=== PATIENT | female | born 1985 | race Caucasian/White ===

== ENCOUNTER 2017-09-18 08:11 | Observation (INO) | payer BC, OTHER ==
[~2017-09-18] VITALS: Ht 157.5 cm; Wt 76.0 kg
[~2017-09-18 08:11] MED LIST: ALBU0.63; ALBUTE
[2017-09-18] MEDS ORDERED: LEXA10TA PO (08:19)
[2017-09-18] MEDS ORDERED: ADVA500A INH (08:19)
[2017-09-18 08:25] VITALS: BP 120/80; PULSE 92; RESP 16; TEMP 98; O2SAT 98
--- NOTE | 2017-09-18 08:29 | PD ---
HPI Chief Complaint: Cardiac Complaint Time Seen by Provider: 08:17 Travel History International Travel<30 days: No Contact w/Intl Traveler<30days: No Traveled to known affect area: No History of Present Illness HPI 32yo F with PMH of asthma and anxiety here with c/o chest pain since 6am this morning. It is midsternal, sharp and radiates to left chest. Chest pain is intermittent. [place] palpitations as well. Associated with sob, and nausea. + Cough. Denies any fever, vomiting, abdominal pain, focal weakness or numbness. Said mother had triple bypass at age 38. Pt is a cig smoker. Said had similar pain before but never evaluated by chuck tender. PFSH Past Medical History Asthma: Yes Reproductive: Yes (PRESENTLY ) : 2 Para: 1 Social History Alcohol Use: No Tobacco Use: No Allergies-Medications (Allergen,Severity, Reaction): Coded Allergies: penicillin G (Unverified Allergy, Mild, Anaphylaxis, 09/18/17) Reported Meds & Prescriptions Reported Meds & Active Scripts Active Reported Advair Diskus Inh (Fluticasone-Salmeterol Inh) 500-50 Mcg/Blist Aer 1 Puff INH HS Rinse mouth after use. Lexapro (Escitalopram Oxalate) 10 Mg Tab 10 Mg PO DAILY Review of Systems Except as stated in HPI: all other systems reviewed are Neg Physical Exam Narrative GENERAL: 32yo F not in distress. SKIN: Focused skin assessment warm/dry. HEAD: Atraumatic. Normocephalic. EYES: Pupils equal and round. No scleral icterus. No injection or drainage. ENT: No nasal bleeding or discharge. Mucous membranes pink and moist. NECK: Trachea midline. No JVD. CARDIOVASCULAR: Regular rate and rhythm. No murmur appreciated. RESPIRATORY: No accessory muscle use. Clear to auscultation. Breath sounds equal bilaterally. GASTROINTESTINAL: Abdomen soft, non-tender, nondistended. MUSCULOSKELETAL: No obvious deformities. No clubbing. No cyanosis. No edema. NEUROLOGICAL: Awake and alert. No obvious cranial nerve deficits. Motor grossly within normal limits. Normal speech. PSYCHIATRIC: Appropriate mood and affect; insight and judgment normal. Data Data Last Documented VS Vital Signs Date Time Temp Pulse Resp B/P (MAP) Pulse Ox O2 Delivery O2 Flow Rate FiO2 09/18/17 09:41 79 16 133/81 (98) 99 Nasal Cannula 2.00 11/16/17 08:25 98.0 Orders Orders Electrocardiogram (09/18/17 08:15) Basic Metabolic Panel (Bmp) (09/18/17 08:25) Complete Blood Count With Diff (09/18/17 08:25) Magnesium (Mg) (09/18/17 08:25) Prothrombin Time / Inr (Pt) (09/18/17 08:25) Act Partial Throm Time (Ptt) (09/18/17 08:25) Troponin I (09/18/17 08:25) Chest, Single Ap (09/18/17 08:25) Aspirin (Aspirin) (09/18/17 08:30) Lorazepam (Ativan) (09/18/17 10:00) Admit Order (Ed Use Only) (09/18/17 10:31) Labs Laboratory Tests Test 09/18/17 08:30 White Blood Count 11.0 TH/MM3 Red Blood Count 4.89 MIL/MM3 Hemoglobin 14.9 GM/DL Hematocrit 44.5 % Mean Corpuscular Volume 90.9 FL Mean Corpuscular Hemoglobin 30.5 PG Mean Corpuscular Hemoglobin Concent 33.5 % Red Cell Distribution Width 12.0 % Platelet Count 275 TH/MM3 Mean Platelet Volume 9.2 FL Neutrophils (%) (Auto) 64.2 % Lymphocytes (%) (Auto) 23.4 % Monocytes (%) (Auto) 6.5 % Eosinophils (%) (Auto) 5.2 % Basophils (%) (Auto) 0.7 % Neutrophils # (Auto) 7.0 TH/MM3 Lymphocytes # (Auto) 2.6 TH/MM3 Monocytes # (Auto) 0.7 TH/MM3 Eosinophils # (Auto) 0.6 TH/MM3 Basophils # (Auto) 0.1 TH/MM3 CBC Comment DIFF FINAL Differential Comment Prothrombin Time 10.6 SEC Prothromb Time International Ratio 1.0 RATIO Activated Partial Thromboplast Time 29.9 SEC Blood Urea Nitrogen 13 MG/DL Creatinine 0.80 MG/DL Random Glucose 91 MG/DL Calcium Level 8.7 MG/DL Magnesium Level 2.0 MG/DL Sodium Level 136 MEQ/L Potassium Level 4.0 MEQ/L Chloride Level 105 MEQ/L Carbon Dioxide Level 20.8 MEQ/L Anion Gap 10 MEQ/L Estimat Glomerular Filtration Rate 83 ML/MIN Troponin I LESS THAN 0.02 NG/ML MDM Medical Decision Making Medical Screen Exam Complete: Yes Emergency Medical Condition: Yes Interpretation(s) EKG: NSR 90bpm. Normal axis. No ST segment elevation or depression. Differential Diagnosis ACS vs. musculoskeletal pain vs. GERD vs. pericarditis vs. anxiety Narrative Course 32yo F with anxiety and asthma here with atypical chest pain. However, pt does have a significant family history and said mother had heart attack at age 32 and had triple bypass at 38yo. Pt is a cig smoker. Labs reviewed, no leukocytosis. Troponin negative. CXR showed no acute disease. Pt given aspirin and ativan for anxiety. I do feel that this is atypical but pt has significant family history so will admit to chest pain center for serial EKG and cardiac enzymes. Diagnosis Primary Impression: Chest pain Qualified Codes: R07.9 - Chest pain, unspecified Admitting Information Admitting Physician Requests: Muriel Bahena DO Sep 18, 2017 08:29
[2017-09-18] MEDS ORDERED: ASPIRIN 325 MG TAB PO ONE (08:30)
[2017-09-18 08:57] LABS: BASOPHIL # 0.1 TH/MM3 (0-0.2); BASOPHIL % 0.7 % (0.0-2.0); EOSINOPHIL # 0.6 TH/MM3 (0-0.4); EOSINOPHIL % 5.2 % (0.0-4.0); HEMATOCRIT 44.5 % (35.0-46.0); HEMO FLAGS DIFF FINAL; LYMPH % 23.4 % (9.0-44.0); LYMPHOCYTE # 2.6 TH/MM3 (1.0-4.8); MEAN CELL VOLUME 90.9 FL (80.0-100.0); MEAN CORPUSCULAR HEMOGLOBIN 30.5 PG (27.0-34.0); MEAN CORPUSCULAR HGB CONC 33.5 % (32.0-36.0); MONO % 6.5 % (0.0-8.0); NEUT % 64.2 % (16.0-70.0); PLATELET COUNT 275 TH/MM3 (150-450); RED BLOOD COUNT 4.89 MIL/MM3 (4.00-5.30)
[2017-09-18 09:00] LABS: CHLORIDE 105 MEQ/L (98-107); SODIUM (NA) 136 MEQ/L (136-145)
[2017-09-18 09:03] LABS: ANION GAP 10 MEQ/L (5-15); BICARBONATE 20.8 MEQ/L (21.0-32.0); BLOOD UREA NITROGEN 13 MG/DL (7-18)
[2017-09-18 09:04] LABS: APTT (PATIENT) 29.9 SEC (24.3-30.1); PROTHROMBIN TIME - PATIENT 10.6 SEC (9.8-11.6)
[2017-09-18 09:07] LABS: GLOMERULAR FILTRATION RATE 83 ML/MIN (>89)
--- NOTE | 2017-09-18 09:27 | RADRPT ---
EXAM DATE/TIME: 09/18/2017 08:39 [facility] COMPARISON: No previous studies available for comparison. INDICATIONS : Chest pain, short of breath. MEDICAL HISTORY : None. SURGICAL HISTORY : None. ENCOUNTER: Initial ACUITY: 1 day PAIN SCORE: 5/10 LOCATION: Bilateral chest FINDINGS: A single view of the chest demonstrates the lungs to be symmetrically aerated without evidence of mas s, infiltrate or effusion. The cardiomediastinal contours are unremarkable. Osseous structures are intact. Old right-sided rib fractures. CONCLUSION: No acute disease. Thony Mccormick Jr., MD on September 18, 2017 at 9:25 Board Certified Radiologist. This report was verified electronically.
[2017-09-18 09:41] VITALS: BP 133/81; PULSE 79; RESP 16; O2SAT 99
[2017-09-18] MEDS ORDERED: LORazepam 1 MG TAB PO ONE (10:00)
[2017-09-18] MEDS ORDERED: SODIUM CHLOR 0.9% 1000 ML INJ 1,000 ML IV SCH (10:29)
[2017-09-18] MEDS ORDERED: NITROGLYCERIN 0.4 MG SL 25 TABS/BTL SL PRN (10:30)
[2017-09-18] MEDS ORDERED: ONDANSETRON HCL 4 MG/2 ML VIAL IV PUSH PRN (10:30)
[2017-09-18] MEDS ORDERED: SODIUM CHLORIDE 0.9% FLUSH 10 ML FLUSH IV FLUSH PRN (10:30)
[2017-09-18 11:46] LABS: CREATINE KINASE 165 U/L (26-192)
[2017-09-18 11:58] LABS: CKMB 1.4 NG/ML (0.5-3.6)
[2017-09-18 12:05] VITALS: BP 120/85; PULSE 73; RESP 15; O2SAT 98
[2017-09-18] MEDS ORDERED: HEPARIN SODIUM - SQ 10,000 UNITS/ML VIAL SQ SCH (14:00)
[2017-09-18] MEDS ORDERED: FAMOTIDINE 20 MG TAB PO SCH (14:00)
[2017-09-18 14:11] LABS: CREATINE KINASE 153 U/L (26-192)
[2017-09-18 14:24] LABS: CKMB 1.4 NG/ML (0.5-3.6)
--- NOTE | 2017-09-18 14:53 | HHI.HP ---
[facility] Uday Villafana MD Admission Diagnosis Chest pain Diagnoses: (1) Chest pain (2) Back pain Chief Complaint: Chest and back pain Travel History International Travel<30 Days: No Contact w/Intl Traveler <30 Da: No Traveled to Known Affected Are: No History of Present Illness Written by Sandie Razo, acting as scribe for Dr. Morrison on 09/18/17 at 14: 48. Ms. Cyr is a 32-year-old female patient with a known medical history of asthma and anxiety who presented to the ED with complaints of chest pain. Patient states she had episodes of shooting back pain that has been intermittent for the past several months. She states that the pain occurs at random times with no identifiable reason or cause. Patient states she usually takes "heartburn" medications and it will eventually go away. She also states that along with the back pain she has episodes of palpitations where her heart "feels like its racing". She says her heart will feel like it "skips a beat" and she cant "catch her breath". This morning she said she had an episode of left-sided chest pain with associated shortness of breath, sharp in nature. Denies any nausea, vomiting or diaphoresis. 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 Patient's mother did have an DC at the age of 32 and a CABG at 38 years old. At the time of assessment patient denies any chest pain, does still complain of back pain. Denies any recent illness including fever, chills, cough, shortness of breath, ab pain, n/v/d or dysuria. Review of Systems Constitutional: DENIES: Fever, Chills Respiratory: COMPLAINS OF: Shortness of breath, DENIES: Cough Cardiovascular: COMPLAINS OF: Chest pain, Palpitations Gastrointestinal: COMPLAINS OF: Bloody stools, Nausea, DENIES: Abdominal pain, Constipation, Diarrhea, Vomiting Musculoskeletal: COMPLAINS OF: Back pain, DENIES: Neck pain Psychiatric: COMPLAINS OF: Anxiety Except as stated in HPI: all other systems reviewed are Neg Past Family Social History Past Medical History Asthma Depression Past Surgical History Tubal ligation Reported Medications Active Reported Advair Diskus Inh (Fluticasone-Salmeterol Inh) 500-50 Mcg/Blist Aer 1 Puff INH HS Rinse mouth after use. Lexapro (Escitalopram Oxalate) 10 Mg Tab 10 Mg PO DAILY Allergies: Coded Allergies: penicillin G (Unverified Allergy, Mild, Anaphylaxis, 09/18/17) Active Ordered Medications Current Medications Medications (Trade) Dose Ordered Sig/Priscila Route Start Time Stop Time Status Last Admin Sodium Chloride 1,000 ml @ 100 mls/hr Q10H IV 09/18/17 10:29 09/18/17 10:53 (NS Flush) 2 ml UNSCH PRN IV FLUSH 09/18/17 10:30 (NS Flush) 2 ml BID IV FLUSH 09/18/17 21:00 (Zofran Inj) 4 mg Q6H PRN IV PUSH 09/18/17 10:30 (Nitrostat Sl) 0.4 mg Q5M PRN SL 09/18/17 10:30 (Heparin Inj) 5,000 units Q8H SQ 09/18/17 14:00 (Pepcid) 20 mg BID PO 09/18/17 14:00 (Pneumovax-23 Inj) 25 mcg ONCE ONCE IM 09/19/17 10:00 09/19/17 10:01 Family History Maternal medical history significant for DC at the age of 3232 years old and a CABG at the age of 38. Father has a significant medical history of arrhythmias. Social History Admits to socially smoking, less than once every week. Denies any alcohol use. Denies any illicit drug use. Physical Exam Vital Signs Vital Signs Date Time Temp Pulse Resp B/P (MAP) Pulse Ox O2 Delivery O2 Flow Rate FiO2 09/18/17 12:05 73 15 120/85 (97) 98 09/18/17 11:45 09/18/17 09:41 79 16 133/81 (98) 99 Nasal Cannula 2.00 09/18/17 08:28 16 99 2.00 09/18/17 08:25 98.0 92 16 120/80 (93) 98 Physical Exam GENERAL: This is a well-nourished, well-developed female patient, lying in bed in no apparent distress. SKIN: No rashes, ecchymoses or lesions. Warm and dry. HEENT: Atraumatic. Normocephalic. Pupils equal round and reactive. Extraocular motions intact. No scleral icterus. No injection or drainage. Nose without bleeding, purulent drainage or septal hematoma. Throat without erythema, tonsillar hypertrophy or exudate. Uvula midline. Airway patent. NECK: Trachea midline. No JVD or lymphadenopathy. Supple, nontender, no meningeal signs. CARDIOVASCULAR: Regular rate and rhythm without murmurs, gallops, or rubs. RESPIRATORY: Clear to auscultation. Breath sounds equal bilaterally. No wheezes , rales, or rhonchi. GASTROINTESTINAL: Abdomen soft, non-tender, nondistended. No hepato-splenomegaly , or palpable masses. No guarding. MUSCULOSKELETAL: Extremities without clubbing, cyanosis, or edema. No joint tenderness, effusion, or edema noted. No calf tenderness. Negative Homans sign bilaterally. NEUROLOGICAL: Awake and alert. Cranial nerves II through XII intact. Motor and sensory grossly within normal limits. Five out of 5 muscle strength in all muscle groups. Normal speech. Laboratory Laboratory Tests Test 09/18/17 08:30 09/18/17 11:15 09/18/17 13:45 White Blood Count 11.0 Red Blood Count 4.89 Hemoglobin 14.9 Hematocrit 44.5 Mean Corpuscular Volume 90.9 Mean Corpuscular Hemoglobin 30.5 Mean Corpuscular Hemoglobin Concent 33.5 Red Cell Distribution Width 12.0 Platelet Count 275 Mean Platelet Volume 9.2 Neutrophils (%) (Auto) 64.2 Lymphocytes (%) (Auto) 23.4 Monocytes (%) (Auto) 6.5 Eosinophils (%) (Auto) 5.2 Basophils (%) (Auto) 0.7 Neutrophils # (Auto) 7.0 Lymphocytes # (Auto) 2.6 Monocytes # (Auto) 0.7 Eosinophils # (Auto) 0.6 Basophils # (Auto) 0.1 CBC Comment DIFF FINAL Differential Comment Prothrombin Time 10.6 Prothromb Time International Ratio 1.0 Activated Partial Thromboplast Time 29.9 Blood Urea Nitrogen 13 Creatinine 0.80 Random Glucose 91 Calcium Level 8.7 Magnesium Level 2.0 Sodium Level 136 Potassium Level 4.0 Chloride Level 105 Carbon Dioxide Level 20.8 Anion Gap 10 Estimat Glomerular Filtration Rate 83 Troponin I LESS THAN 0.02 LESS THAN 0.02 LESS THAN 0.02 Total Creatine Kinase 165 153 Creatine Kinase MB 1.4 1.4 Result Diagram: 09/18/1782909/18/17829 Imaging Last Impressions Chest X-Ray 09/18/17824 Signed Impressions: Service Date/Time: September 08:39 - CONCLUSION: No acute disease. MD Jose Bae Jr. VTE Risk Assessment Caprini VTE Risk Assessment: No/Low Risk (score <= 1) Caprini Risk Assessment Model Point Value = 1 Point Value = 2 Point Value = 3 Point Value = 5 Age 41-60 Minor surgery BMI > 25 kg/m2 Swollen legs Varicose veins or History of unexplained or recurrent spontaneous Oral contraceptives or hormone replacement Sepsis (< 1 month) Serious lung disease, including pneumonia (< 1 month) Abnormal pulmonary function Acute myocardial infarction Congestive heart failure (< 1 month) History of inflammatory bowel disease Medical patient at bed rest Age 61-74 Arthroscopic surgery Major open surgery (> 45 min) Laparoscopic surgery (> 45 min) Malignancy Confined to bed (> 72 hours) Immobilizing plaster cast Central venous access Age >= 75 History of VTE Family history of VTE Factor V Leiden Prothrombin [id number] Lupus anticoagulant Anticardiolipin antibodies Elevated serum homocysteine Heparin-induced thrombocytopenia Other congenital or acquired thrombophilia Stroke (< 1 month) Elective arthroplasty Hip, pelvis, or leg fracture Acute spinal cord injury (< 1 month) Prophylaxis Regimen Total Risk Factor Score Risk Level Prophylaxis Regimen 0-1 Low Early ambulation 2 Moderate Order ONE of the following: *Sequential Compression Device (SCD) *Heparin 5000 units SQ BID 3-4 Higher Order ONE of the following medications: *Heparin 5000 units SQ TID *Enoxaparin/Lovenox 40 mg SQ daily (WT < 150 kg, CrCl > 30 mL/min) *Enoxaparin/Lovenox 30 mg SQ daily (WT < 150 kg, CrCl > 10-29 mL/min) *Enoxaparin/Lovenox 30 mg SQ BID (WT < 150 kg, CrCl > 30 mL/min) AND/OR *Sequential Compression Device (SCD) 5 or more Highest Order ONE of the following medications: *Heparin 5000 units SQ TID (Preferred with Epidurals) *Enoxaparin/Lovenox 40 mg SQ daily (WT < 150 kg, CrCl > 30 mL/min) *Enoxaparin/Lovenox 30 mg SQ daily (WT < 150 kg, CrCl > 10-29 mL/min) *Enoxaparin/Lovenox 30 mg SQ BID (WT < 150 kg, CrCl > 30 mL/min) AND *Sequential Compression Device (SCD) Assessment and Plan Problem List: (1) Chest pain ICD Code: R07.9 - Chest pain, unspecified Plan: Patient has been admitted to the chest pain center. Serial EKGs and serial troponins have been ordered for ruling out ACS purposes. Serial troponins flat. EKG reviewed showing NSR, HR controlled, no arrhythmias or ST changes noted. Nitroglycerin SL available PRN as needed. Aspirin 325 mg PO given in ED. Famotidine ordered and scheduled. Continue cardiac telemetry. Monitor for any telemetry. Supportive care. DVT Prophylaxis: SCDs. Heparin. A treadmill stress test has been ordered and further hospitalization and treatment plan will depend on results. Patient stable at this time and agreeable to the plan. (2) Back pain ICD Code: M54.9 - Dorsalgia, unspecified Plan: Supportive care. Toradol given x 1. Assess response. Assessment and Plan This note was transcribed by scribe [Sandie Razo]. I, Dr. Eloise Morrison personally performed the history, physical exam, and medical decision making; and confirmed the accuracy of the information in the transcribed note. Authenticated by Dr. Eloise Morrison on 09/18/17 at 1450. Sandie Razo Sep 18, 2017 14:53 Eloise Morrison MD Sep 18, 2017 16:43
[2017-09-18] MEDS ORDERED: KETOROLAC TROMETHAMINE 60 MG/2 ML (IM) VIAL IM ONE (16:00)
--- NOTE | 2017-09-18 16:04 | EKG ---
Date Performed: 09/18/2017 Time Performed: 08:18:45 PTAGE: 32 years EKG: Sinus rhythm NORMAL ECG NO PREVIOUS TRACING DOCTOR: Domonique Madrid Interpretating Date/Time 09/18/2017 16:03:18
--- NOTE | 2017-09-18 17:35 | HHI.DCPOC ---
Discharge Care Plan Diagnosis: (1) Chest pain (2) Back pain Your Health Problems Are: Chest Pain Goals to Promote Your Health * To prevent worsening of your condition and complications * To maintain your health at the optimal level Directions to Meet Your Goals Take your medications as prescribed Follow your dietary instruction Follow activity as directed Keep your appointments as scheduled Take your immunizations and boosters as scheduled If your symptoms worsen call your PCP, if no PCP go to Urgent Care Center or Emergency Room Smoking is Dangerous to Your Health. Avoid second hand smoke Call the 24-hour hour crisis hotline for domestic abuse at Sandie Razo Sep 18, 2017 17:34
--- NOTE | 2017-09-18 17:43 | TR ---
Date Performed: 09/18/2017 Time Performed: 16:55:56 DOCTOR: Camilo Roach DRUG LIST: CLINICAL HISTORY: REASON FOR TEST: Chest pain REASON FOR ENDING: OBSERVATION: CONCLUSION: Uday protocol completed test stopped sec to reaching target heart rate and leg fati cristina. Good BP response. Patient does complain of shortness of breath and chest discomfort. No ST fajardo es to indicate ischemia. Good exercise tolerance. Recovery quick and unremarkable. Maximum FJ=744 Tar get HR Fthhruur=728.0% Maximum HQ=146/70 Total Exercise Time=7:30 COMMENTS: Conclusion: Normal treadmill exercise. No evidence of ischemia.
[2017-09-18] MEDS ORDERED: SODIUM CHLORIDE 0.9% FLUSH 10 ML FLUSH IV FLUSH SCH (21:00)
[2017-09-19] MEDS ORDERED: PNEUMOCOCCAL POLYVALENT INJ 25 MCG/0.5 ML SYR IM ONE (10:00)
--- NOTE | 2017-09-19 16:24 | EKG ---
Date Performed: 09/18/2017 Time Performed: 13:46:02 PTAGE: 32 years EKG: Sinus rhythm NORMAL ECG PREVIOUS TRACING : 09/18/2017 10.40 Since previous tracing, no significant change noted DOCTOR: Camilo Roach Interpretating Date/Time 09/19/2017 16:23:23
--- NOTE | 2017-09-19 16:25 | EKG ---
Date Performed: 09/18/2017 Time Performed: 10:40:32 PTAGE: 32 years EKG: Sinus rhythm NORMAL ECG PREVIOUS TRACING : 09/18/2017 08.18 Since previous tracing, no significant change noted DOCTOR: Camilo Roach Interpretating Date/Time 09/19/2017 16:24:00
== END 2017-09-18 18:33 | disposition home or self-care (01) ==
LOC: PHED 08:11 → PHEDA 10:31 → PH3B 11:45
PROVIDERS: ADMIT Family Medicine; ATTEND Family Medicine
DX: R07.89 Other chest pain (principal); M54.9 Dorsalgia, unspecified; R06.02 Shortness of breath; R00.2 Palpitations; R11.0 Nausea; J45.909 Unspecified asthma, uncomplicated; F41.9 Anxiety disorder, unspecified; F32.9 Major depressive disorder, single episode, unspecified; F17.210 Nicotine dependence, cigarettes, uncomplicated; Z79.899 Other long term (current) drug therapy; Z82.49 Family history of ischemic heart disease and other diseases of the circulatory system
CPT/HCPCS: 71010; 80048; 82550; 82552; 83735; 84484; 85025; 85610; 85730; 93005; 93017; 96360; 96372; 99285; G0378; J1644; J7030